=== PATIENT | male | born 1970 | race Caucasian/White ===

== ENCOUNTER 2021-05-22 09:54 | Outpatient (CLI) | payer OTHER ==
[2021-05-22 21:11] VITALS: BP 129/76
--- NOTE | 2021-05-22 21:11 | SLEEP CARE CONSULTATION ---
Information from patient questionnaire entered by Bashir Ratliff MA. I have reviewed and concur with the information entered by Bashir Ratliff MA. This document represents the service I personally performed and the decisions made by me, Jeanette Orona MD, [facility]. History of Present Illness Service Date and Time: 05/22/2021 0954 Reason for Visit: New patient (ONSET 03/2019, KARLEE DX-NOT ON CPAP) Chief Complaint: reports: Unrefreshed sleep, Snoring, Observed pauses in breathing, Fatigue, Frequent awakenings at night, Other Date of Onset: 2 YEARS Usual bedtime: 1000 PM Time it takes to fall asleep: 30 MINUTES Snores at night: Yes Observed to quit breathing while asleep: No Sleeps alone due to snoring: No Number of times waking at night: 3 Reasons for waking at night: reports: Snoring, Other (NOISE) Toss, Turn, or Twitch while sleeping: Yes Recalls having dreams: Yes Usually gets out of bed at: 0645 Feels refreshed in the morning: No Morning headache: No Sleepy or fatigued during the day: Yes Ever fallen asleep while driving: No Takes day naps: No Dreams during day naps: No Prior sleep studies: Yes Additional HPI information: I had the pleasure of seeing Mr. Wick today regarding obstructive sleep apnea- hypopnea. As you know, he is a 51-year-old gentleman who was diagnosed with the sleep-disordered breathing on 05/02/2020 in [place], [place]. The AHI was 10.7. These numbers were mentioned on his CPAP titration report. The diagnostic in- laboratory polysomnography report is not available. He was prescribed an autoCPAP set between 6 10 cmH2O which he could not use and returned it after a month. He did not have any type of visit with the sleep physician at [facility] He continues to snore loudly, and his witnesses apneic episodes. He has gained 15 lbs since the sleep studies. The patient tells me that he normally goes to bed around 10 pm, and it takes him approximately 30 minutes to fall asleep. He takes Benadryl and Flexeril to help him fall asleep. He can recall waking up on the average of 3 times during the night. He has awakened occasionally because of his own snoring, but not ch oking, or having to gasp for air. In the morning he usually gets up out of the bed around 6:45 a.m. not feeling refreshed nor rested. During the day he complains of feeling sleepy and fatigued. His score on [place] Sleepiness Scale is 4 out of 24. He never has fallen asleep while driving nor has had any accident due to sleepiness. He usually does not take naps during the day. He reports having impaired concentration during the day. - Parasomnia Symptoms Ever been unable to move upon waking from sleep: No Walks in sleep: No Talks in sleep: No Ever acted out dreams in sleep: Yes Ever felt weak in the knees when startled or emotional: No Bothered by creepy, crawly, restless sensations in legs: No Problems with memory or concentration: Yes Subjective Initial [place] Sleepiness Scale score: 4 (2021) Past Medical History Past Medical History: reports: Hypothyroidism, Anxiety, GERD Social History The patient's occupation is a [employer]. Patient is and lives in [place]. Have you smoked in the past 12 months: No Alcohol use: Yes Alcohol amount and frequency: 2 X DAILY Caffeine use: Yes Caffeine amount and frequency: 2 X DAILY Family History Family Hx Sleep Apnea: Father: Snoring, Sibling: Snoring, Grandparent: Snoring Allergies and Home Medications Known drug allergies: No Drug allergies reviewed: Yes Home medication list reviewed: Yes Review of Systems Cardiovascular: reports: high blood pressure Respiratory: denies: shortness of breath, wheeze, sputum production, chronic cough, other Gastrointestinal: reports: heartburn Urinary: denies: incontinence, frequency, urgency, impotence, other Neurological: denies: headaches, seizure, head trauma, disorientation, speech dysfunction, gait or balance problems, fainting or unconsciousness, other Psychiatric: denies: Attention Deficit Hyperactivity, anxiety, depression, mood disorder, claustrophobia, other Ear/Nose/Throat: denies: nasal congestion, sinus problems, nose bleeds, dry mouth/throat, hoarseness, injury to nose, tonsillectomy, wisdom teeth removed, other Endocrine: reports: thyroid disease Musculoskeletal: denies: joint pain, neck pain, back pain, joint swelling, muscle pain or cramping, mobility problems, other Physical Exam Vital signs obtained and entered by: DIANNE HUSSEIN Blood Pressure: 129/76 (RIGHT, PULSE85, RESP 16) Cuff size: wrist Heart Rate: 79 O2 Saturation: 96 (PAPER MASK) Height: 5 ft 8 in Weight: 185 lb Body Mass Index: 28.1 BMI Classification: Overweight Neck circumference: 16 (INCHS) Impression and Plan IMPRESSION: 1. Obstructive Sleep Apnea-Hypopnea Syndrome, mild, as previously diagnosed. The diagnostic sleep study report is not available. He could not use the CPAP. Narrow oropharynx and obesity are common predisposing factors for obstructive sleep apnea-hypopnea syndrome. A new in-laboratory polysomnography will be ordered to confirm the diagnosis before treatment is implemented. Plan: 1. Schedule an in-laboratory polysomnography and return in 1 to 2 weeks after the study to discuss results. 2. Avoid long distance driving or when feeling sleepy. 3. Avoid alcohol, sedative and muscle relaxant around bedtime. 4. Attempt to lose some weight. Follow up with Sleep Care in: 1-2 months Visit Type: In Office Time Spent with Patient (minutes): 15 Provider Statement: I spent 100% of the Face to Face Visit with the patient with greater than 50% spent counseling the patient and coordination of care.
== END 2021-05-22 09:55 | disposition home or self-care (01) ==
LOC: SC 09:54
PROVIDERS: ATTEND Internal Medicine Pulmonary Disease
DX: G47.33 Obstructive sleep apnea (adult) (pediatric) (principal)
CPT/HCPCS: 99202; 99212

== ENCOUNTER 2021-06-22 20:57 | Outpatient (CLI) | payer OTHER | END 2021-06-22 20:58 | disposition home or self-care (01) | LOC: SC 20:57 | PROVIDERS: ATTEND Internal Medicine Pulmonary Disease | DX: G47.33 Obstructive sleep apnea (adult) (pediatric) (principal) | CPT/HCPCS: 95810 ==

== ENCOUNTER 2021-07-10 12:14 | Outpatient (CLI) | payer OTHER ==
--- NOTE | 2021-07-10 14:22 | SLEEP CARE CONSULTATION ---
Information from patient questionnaire entered by Drea White. I have reviewed and concur with the information entered by Drea White. This document represents the service I personally performed and the decisions made by me, Jeanette Orona MD, [facility]. History of Present Illness Service Date and Time: 07/10/2021 1214 Initial [place] Sleepiness Scale score: 4 (2021) Additional HPI information: HPI: returned for follow up of the sleep study he had on 06/22/2021. The polysomnography showed that the patient had normal sleep efficiency. The sleep architecture was abnormal for sleep fragmentation and reduced amount of time spent in slow wave sleep (N3). Respiratory monitoring showed mild obstructive sleep apnea-hypopnea (AHI = 14.9) associated with frequent arousals, oxyhemoglobin desaturation and mild hypoxia (ananth oxygen saturation of 82%). The respiratory events occurred mainly during supine sleep (supine AHI = 46.1; non-supine = 5.83). Snore was light to moderate in intensity. There was no significant periodic leg movement of sleep. Cardiac rhythm was normal sinus rhythm without significant arrhythmia. No abnormal behavior (parasomnia) observed during the night. The patient was informed of these findings. I explained to him the pathophysiology behind obstructive sleep apnea. We then spent quite a bit of time discussing different treatment options. For mild obstructive sleep apnea, surgery and oral appliance are alternatives to nasal CPAP therapy but in moderate or severe cases, nasal CPAP is the most effective and reliable treatment. Weight loss in an obese individual is strongly recommended. After some discussion, he opted to try CPAP again. He tried it last year in [place] but returned it to the [facility]. Sleep Study - Results Type of Sleep Study: Polysomnography (F/U POLY, 06/22/21 [facility]) Prior sleep studies: Yes Allergies and Home Medications Drug allergies reviewed: Yes Home medication list reviewed: Yes Review of Systems Review of systems same as previous: Yes Physical Exam Vital signs obtained and entered by: DIANNE PALACIO Height: 5 ft 8 in Impression and Plan IMPRESSION: 1. Obstructive Sleep Apnea-Hypopnea Syndrome, mild, approaching moderate, but positional. As mentioned above, he would like to try CPAP again. I will set the pressure low to maximize comfort (his last CPAP was set at 6 10 cmH2O). PLAN: 1. Prescription made for an autoCPAP, heated humidifier, and related supplies. He would like to use [facility] in [place]. 2. Return for follow up after one month of using the CPAP. Prescriptions: Auto CPAP Follow up with Sleep Care in: 1-2 months Visit Type: Telehealth Video (PHONE# [phone]) Video Type: Doximity Patient Location: Home Location of Provider: Home Patient agrees and consents to this telehealth visit type: Yes Patient agrees to have their insurance billed: Yes Time Spent with Patient (minutes): 15 Provider Statement: I spent 100% of the Telehealth Video Call with the patient with greater than 50% spent counseling the patient and coordination of care.
== END 2021-07-10 12:15 | disposition home or self-care (01) ==
LOC: SC 12:14
PROVIDERS: ATTEND Internal Medicine Pulmonary Disease
DX: G47.33 Obstructive sleep apnea (adult) (pediatric) (principal)